=== PATIENT | male | born 2000 | race Caucasian/White ===

== ENCOUNTER 2022-03-11 20:40 | Emergency (ER) | payer SELFPAY ==
[2022-03-11 20:48] VITALS: BP 140/80
== END 2022-03-13 16:34 | disposition left against medical advice (07) ==
LOC: ED 20:40
DX: S09.93XA Unspecified injury of face, initial encounter (principal); Z53.21 Procedure and treatment not carried out due to patient leaving prior to being seen by health care provider; X58.XXXA Exposure to other specified factors, initial encounter; Y93.9 Activity, unspecified; Y92.89 Other specified places as the place of occurrence of the external cause; Y99.8 Other external cause status